=== PATIENT | male | born 1955 | race Caucasian/White ===

== ENCOUNTER 2021-11-05 08:30 | Day surgery (SDC) | payer MEDICARE, OTHER ==
[~2021-11-05] VITALS: Ht 175.3 cm; Wt 86.3 kg
[~2021-11-05 08:30] MED LIST: BAYER CHEWABLE81 MG PO; CLOPIDOGREL75 MG PO; CRESTOR40 MG NG; FAMOTIDINE40 MG PO; GEMFIBROZIL600 MG PO; MAGNESIUM250 M1 PO; NITROSTAT0.4 MG SL
--- NOTE | 2021-11-05 11:18 | NUR ---
11/05/21 Deisy8 Katia Wren 1114-PATIENT ARRIVED TO PACU DROWSY AWAKENS TO VERBAL STIMULI DENIES PAIN OR NAUSEA. 2L NC 95% RR EVEN. IVF INFUSING. HOB ELEVATED. IVF INFUSING. PATIENT DOZES BACK TO SLEEP.
--- NOTE | 2021-11-05 18:26 | OR ---
[facility] [address], [place] [address] Signed DATE OF OPERATION: 11/05/2021 SURGEON: Elian Bullard MD PREOPERATIVE DIAGNOSIS: Screening colonoscopy. POSTOPERATIVE DIAGNOSIS: Diverticulosis, sigmoid and left colon and elsewhere. PROCEDURE: Total colonoscopy to cecum. ANESTHESIA: Intravenous sedation; fentanyl 150 mcg and Versed 5 mg. INDICATION: This 66-year-old white man is a patient of Dr. Stone and well known to me from the past having undergone colonoscopy in 2011 (10 years ago), which was normal. He was noted to have some diverticula then, however. He has no family history of colon cancer and no symptoms of bleeding, diarrhea, or constipation. He is admitted at this time to undergo colonoscopy. He understands the risk of bleeding, infection, and perforation. FINDINGS: The prep was excellent. Complete colonoscopy was undertaken to the right colon, but elevation of mucosa with biopsy forceps was required to see behind the ileocecal valve. Numerous diverticula were noted throughout the colon, most dominantly in the left side and sigmoid. There was no other abnormality of note, specifically no polyps or colitis. DESCRIPTION OF PROCEDURE: The patient was brought to the endoscopy suite and placed in lateral decubitus position, given intravenous sedation to the point of slurred speech and nystagmus. Digital rectal examination was normal. An Olympus video colonoscope was passed in the rectum and manipulated throughout the colon ultimately passing the hepatic flexure with entry into the right colon. There were various maneuvers including abdominal wall stabilization. The scope was advanced further where visualization of the cecum could be undertaken, but full intubation not undertaken. Using biopsy forceps, the mucosa of the cecum was elevated and examined showing no sign of abnormality behind the ileocecal valve. The scope was then withdrawn Electronically Signed By: ELIAN BULLARD MD 11/05/21 1826 PATIENT NAME: ELIOT WASHINGTON OPERATIVE REPORT DATE OF : 53 REPORT #: [id number] PHYSICIAN: ELIAN BULLARD MD PCP: MARK STONE MD REPORT IS CONFIDENTIAL AND NOT TO BE RELEASED WITHOUT AUTHORIZATION [facility] [address], [place] [address] Signed and examination throughout showed no sign of polyps or colitis, only diverticular changes throughout, most dominantly in the left and sigmoid areas. Retroflexed view of the rectum was essentially normal. The scope was removed. The patient was taken to the recovery room in good condition. CONCLUDING DIAGNOSIS: Diverticulosis. PLAN: Recommend high-fiber diet and recommend repeat colonoscopy in 10 years, sooner if clinically indicated. He will return to the ongoing care of Dr. Stone. MD GAVIN Torres/BENJAMINL /[id number] cc: Dr. Mark Stone Copies: ~ Electronically Signed By: ELIAN BULLARD MD 11/05/21 1826 PATIENT NAME: ELIOT WASHINGTON OPERATIVE REPORT DATE OF : 53 REPORT #: [id number] PHYSICIAN: ELIAN BULLARD MD PCP: MARK STONE MD REPORT IS CONFIDENTIAL AND NOT TO BE RELEASED WITHOUT AUTHORIZATION
== END 2021-11-05 12:08 | disposition home or self-care (01) ==
LOC: DS 08:30 → OPS 08:30 → DS 08:35 → OPS 10:30
PROVIDERS: ATTEND Surgery
PROC: 0DJD8ZZ Inspection of Lower Intestinal Tract, Via Natural or Artificial Opening Endoscopic (ICD-10-PCS; principal; 2021-11-05 10:30)
DX: Z12.11 Encounter for screening for malignant neoplasm of colon (principal); Z95.5 Presence of coronary angioplasty implant and graft; K21.9 Gastro-esophageal reflux disease without esophagitis; K57.30 Diverticulosis of large intestine without perforation or abscess without bleeding; Z79.82 Long term (current) use of aspirin; Z79.01 Long term (current) use of anticoagulants; Z86.16 Personal history of COVID-19
CPT/HCPCS: 99153; G0500; J2250; J3010; J7121

== ENCOUNTER 2023-01-28 14:15 | Emergency (ER) | payer MEDICARE, OTHER ==
[~2023-01-28] VITALS: Ht 175.3 cm; Wt 86.2 kg
[2023-01-28 17:47] VITALS: BP 144/84
== END 2023-01-28 17:53 | disposition home or self-care (01) ==
LOC: ED 14:15
DX: S61.012A Laceration without foreign body of left thumb without damage to nail, initial encounter (principal); W22.8XXA Striking against or struck by other objects, initial encounter; Z87.891 Personal history of nicotine dependence; Z91.09 Other allergy status, other than to drugs and biological substances; Z79.899 Other long term (current) drug therapy; Z79.82 Long term (current) use of aspirin
CPT/HCPCS: 12002; 99282-25

== ENCOUNTER 2024-02-11 15:15 | Inpatient (IN) | payer MEDICARE, OTHER ==
[~2024-02-11] VITALS: Ht 175.3 cm; Wt 74.9 kg
[~2024-02-11 15:15] MED LIST changes: -CRESTOR40 MG NG; +CRESTOR40 MG PO
[2024-02-11 15:36] LABS: BASOPHILS 0.3 % (0-2); EOSINOPHILS 1.9 % (0-6); HEMATOCRIT 43.8 % (35.0-50.0); HEMOGLOBIN 15.1 g/dL (12.0-18.0); LYMPHOCYTES 23.5 % (24-44); MCH 31.7 (27-36); MCHC 34.5 g/dl (30-36); MCV 91.9 fl (81-99); MONOCYTES 11.3 % (0-12); PLATELET COUNT 249 K/uL (140-440); RBC 4.76 M/ul (4.3-5.7); RDW 12.7 (10.5-15.0)
[2024-02-11 15:41] LABS: INR 1.08 (0.80-1.30); PROTIME 13.6 Sec (11.2-14.2)
[2024-02-11 15:43] LABS: PARTIAL THROMBOPLASTIN TIME 32.8 Sec (22.9-41.3)
[2024-02-11] MEDS ORDERED: methylPREDNISolone SOD SUCC 125 MG/2 ML VIAL IV ONE (15:45)
[2024-02-11] MEDS ORDERED: ALBUTEROL/IPRATROPIUM 3 ML NEB INH ONE (15:45)
[2024-02-11 15:53] LABS: ALBUMIN 3.5 g/dL (3.4-5.0); ALBUMIN/GLOBULIN RATIO 0.66 (1.1-2.4); BILIRUBIN, TOTAL 0.6 ng/dL (0.2-1.0); BUN/CREATININE RATIO 13.08 (6.0-28.6); CALCIUM 9.6 mg/dL (8.5-10.1); CREATININE, SERUM 1.07 mg/dL (0.70-1.30); MAGNESIUM 2.1 mg/dL (1.8-2.4); PROTEIN, TOTAL 8.8 g/dL (6.4-8.2)
[2024-02-11] MEDS ORDERED: TRELEGY ELLIPT1 EAC1 INH (15:53)
[2024-02-11 16:43] LABS: INFLUENZA B NAA NEGATIVE (NEGATIVE); RESPIRATORY SYNCYTIAL VIR NAA NEGATIVE (NEGATIVE)
[2024-02-11] MEDS ORDERED: REMDESIVIR 200 MG in SODIUM CHLORIDE 0.9% 210 ML IV ONE (19:15)
[2024-02-11] MEDS ORDERED: DEXAMETHASONE SOD PHOS 10 MG/ML VIAL IV SCH ×2 (19:15→20:00)
[2024-02-11] MEDS ORDERED: OSELTAMIVIR PHOSPHATE 75 MG CAP PO SCH (19:15)
--- NOTE | 2024-02-11 19:45 | NUR ---
PT ARRIVED TO CCU ROOM 130. PT ON 3L OXY MASK, NO SIGNS OF DISTRESS. PT TRANSFERS FROM STRETCHER TO BED VIA 1X ASSIST. PT STEADY ON FEET, DENIES FEELING ANY WEAKNESS, LIGHTHEADED, OR SOB. HAND OFF REPORT RECEIVED FROM JOAQUIN AVILEZ.
--- NOTE | 2024-02-11 20:00 | NUR ---
PT MOVED TO 3L NC, TOLERATING WELL. PT VITAL SIGNS STABLE.
[2024-02-11 20:07] VITALS: BP 133/74
[2024-02-11 20:30] VITALS: BP 99/72
[2024-02-11 21:00] VITALS: BP 126/72
[2024-02-11] MEDS ORDERED: MELATONIN 3 MG TAB PO PRN (21:00)
--- NOTE | 2024-02-11 21:15 | NUR ---
PT REQUESTING TO USE BATHROOM. PT UP TO BATHROOM, X1 SBA. PT DESATS LOW 84% WITH MOVEMENT AND REPORTS FEELING SOB. PT ASSISTED BACK TO BED, O2 INCREASED TO 5L NC. PT RECOVERS QUICKLY, O2 TURNED BACK TO 3L. PT TOLERATING WELL WITH SATURATION AT 98%. NO FURTHER NEEDS AT THIS TIME. CALL LIGHT WITHIN REACH.
[2024-02-11 21:30] VITALS: BP 145/86
[2024-02-11 22:00] VITALS: BP 116/72
[2024-02-11 23:00] VITALS: BP 125/68
--- NOTE | 2024-02-11 23:30 | NUR ---
NEW 20G IV PLACED IN RIGHT FOREARM. PT TOLERATED WELL. NO FURTHER NEEDS AT THIS TIME. CALL LIGHT WITHIN REACH.
[2024-02-12] VITALS (15 sets, daily range): BP systolic 105–137; BP diastolic 58–75
--- NOTE | 2024-02-12 01:02 | NUR ---
PT RESTING IN BED WITH EYES CLOSED, RESPIRATIONS EVEN AND UNLABORED. PT REMAINS ON 3L NC, SATURATING WELL. PT VITAL SIGNS STABLE. NO NEEDS AT THIS TIME. CALL LIGHT WITHIN REACH. BED IN LOW AND LOCKED POSITION WITH BED ALARM ON.
--- NOTE | 2024-02-12 03:12 | NUR ---
PT USED CALL LIGHT TO USE THE RESTROOM. PT USED URINAL AT BEDSIDE. STEADY ON FEET, O2 SATURATION DROPPED LOW 86%. PT RECOVERED QUICKLY, AND REMAINED ON 3L NC. PT BACK TO BED, FRESH ICE WATER PROVIDED. CALL LIGHT WITHIN REACH, BED IN LOW AND LOCKED POSTION WITH BED ALARM ON. PT HAS NO FURTHER NEEDS AT THIS TIME.
--- NOTE | 2024-02-12 05:19 | NUR ---
PT LABS DRAWN OFF PERIPHERAL IV SITE AND GIVEN DIRECTLY TO LAB IN ROOM. PT HAS NO NEEDS AT THIS TIME. CALL LIGHT WITHIN REACH.
[2024-02-12 05:32] LABS: BASOPHILS 0.1 % (0-2); HEMATOCRIT 40.2 % (35.0-50.0); HEMOGLOBIN 14.3 g/dL (12.0-18.0); LYMPHOCYTES 19.7 % (24-44); MCHC 35.5 g/dl (30-36); MONOCYTES 4.9 % (0-12); NEUTROPHILS 75.3 % (39-80); PLATELET COUNT 239 K/uL (140-440); RBC 4.46 M/ul (4.3-5.7); RDW 12.9 (10.5-15.0)
[2024-02-12 05:52] LABS: ALBUMIN 3.1 g/dL (3.4-5.0); ALBUMIN/GLOBULIN RATIO 0.62 (1.1-2.4); ANION GAP 11.3 (7-21); BILIRUBIN, TOTAL 0.3 ng/dL (0.2-1.0); BUN/CREATININE RATIO 15.47 (6.0-28.6); CALCIUM 9.1 mg/dL (8.5-10.1); CREATININE, SERUM 0.84 mg/dL (0.70-1.30); MAGNESIUM 2.3 mg/dL (1.8-2.4); POTASSIUM 4.3 mmol/L (3.5-5.1); PROTEIN, TOTAL 8.1 g/dL (6.4-8.2)
--- NOTE | 2024-02-12 06:55 | NUR ---
PT NOW ON 1L NC. TOLERATING WELL, SATURATION AT 95%. VITAL SIGNS STABLE. NO NEEDS AT THIS TIME. CALL LIGHT WITHIN REACH.
--- NOTE | 2024-02-12 07:30 | NUR ---
REPORT RECEIVED. PATIENT IS RESTING IN BED. NO DISTRESS NOTED.
[2024-02-12] MEDS ORDERED: ASPIRIN 81 MG CHEW PO SCH (09:00)
[2024-02-12] MEDS ORDERED: MAGNESIUM OXIDE 400 MG TABLET PO SCH (09:00)
[2024-02-12] MEDS ORDERED: CLOPIDOGREL BISULFATE 75 MG TAB PO SCH (09:00)
[2024-02-12] MEDS ORDERED: ENOXAPARIN SODIUM 40 MG/0.4 ML SYR SUB-Q SCH (09:00)
[2024-02-12] MEDS ORDERED: FAMOTIDINE 20 MG TAB PO SCH (09:00)
[2024-02-12] MEDS ORDERED: ALBUTEROL SULFATE 0.083% 3 ML VIAL INH PRN (09:30)
--- NOTE | 2024-02-12 09:44 | NUR ---
RESP THERAPIST IN PATIENT ROOM GIVING NEB TREATMENT. TOOK BREAKFAST FAIR.
[2024-02-12] MEDS ORDERED: BUDESONIDE-FO10.2 G1 INH (10:27)
[2024-02-12] MEDS ORDERED: VENTOLIN HFA18 GM INH (10:28)
[2024-02-12] MEDS ORDERED: REMDESIVIR 100 MG in SODIUM CHLORIDE 0.9% 230 ML IV SCH (10:30)
--- NOTE | 2024-02-12 10:30 | NUR ---
UP TO COMMODE TO VOID AND EXPELL MEDIUM BROWN LOOSE STOOL. WITH TRANSFER TO COMMODE O2 INCREASED INCREASED TO 4 L AND WITH EXERTION O2 SAT TO 82. WITH REST, O2 SAT QUICKLY RECOVERS TO 90. UPON RETURN TO BED O2 DECREASED TO 2 LITERS. PATIENT STATES HE DOES GET SHORT OF BREATH WITH ACTIVITY. PATIENT STATES HE DOES FEEL ALOT BETTER TODAY.
--- NOTE | 2024-02-12 11:36 | NUR ---
MED REC COMPLETE
[2024-02-12] MEDS ORDERED: PHARMACY RENAL DOSE ADJUSTMENT 1 DOSE MISC PO SCH (12:00)
[2024-02-12] MEDS ORDERED: ALBUTEROL/IPRATROPIUM 3 ML NEB INH SCH (12:00)
--- NOTE | 2024-02-12 13:00 | NUR ---
TOOK LUNCH WELL. PATIENT IS W/O REQUEST. SITTING UP IN BED VISITING WITH . REMAINS ON O2 AT 2 LITERS.
--- NOTE | 2024-02-12 14:00 | NUR ---
OOB TO VOID AND CHANGE UNDERSHORTS, O2 SATS DOWN TO 82, O2 INCREASED TO 4 L NC, O2 SAT THEN TO 88. AFTER REST, SATS UP TO 90'S. O2 THEN DECREASED TO 2.5 L NC.
--- NOTE | 2024-02-12 16:48 | NUR ---
ASSESSMENT DONE. LUNGS ARE WITH CRACKLES THROUGOUT. CONTINUES WITH INCREASED SHORTNESS OF BREATH WITH EXERTION, WITH DESATS TO MID 80'S. WILL RECOVER QUICKLY AFTER FEW MINUTES OF REST. HAS OCC HARSH PRODUCTIVE COUGH. SITTING UP IN BED FOR DINNER. CALL LIGHT WITHIN REACH. DAUGHTER IN ROOM.
--- NOTE | 2024-02-12 18:40 | NUR ---
DR. ESCALONA HERE TO SEE PATIENT. NO FUTHER ORDERS AT THIS TIME.
--- NOTE | 2024-02-12 19:08 | NUR ---
REPORT TO NEXT SHIFT. PATIENT IS WATCHING TV WITH HOB ELEVATED. REMAINS ON O2 AT 2 L NC. NO FUTHER CHANGES.
--- NOTE | 2024-02-12 19:25 | NUR ---
HANDOFF REPORT RECEIVED FROM MELISSA NUÑEZ. PT LAYING IN BED WATCHING TV, NO NEEDS AT THIS TIME. CALL LIGHT WITHIN REACH.
--- NOTE | 2024-02-12 19:45 | NUR ---
PT USED CALL LIGHT REQUESTING TO USE THE BATHROOM. PT USED URINAL AT BEDSIDE. PT DESATS LOW 84% ON 2L NC. PT O2 TITRATED UP TO 4L NC. PT VOIDED 550 CC OF CLEAR YELLOW URINE. CALL LIGHT WITHIN REACH.
[2024-02-12] MEDS ORDERED: BUDESONIDE 0.5 MG/2 ML VIAL INH SCH (20:00)
--- NOTE | 2024-02-12 20:10 | NUR ---
PT ASSESSMENT COMPLETE. PT RESTING IN BED WATHCING TV WITH AT BEDSIDE. PT IS ON 2L NC, SATURATING WELL. VITAL SIGNS STABLE. PT DENIES ANY PAIN, SOB, OR FEELING NAUSEOUS AT THIS TIME. PT IV SITES WNL. LUNG SOUNDS HAVE CRACKLES THROUGHOUT. PT PROIVDED WITH FRESH ICE WATER AND NEW GOWN. PT HAS NO FURTHER NEEDS AT THIS TIME. CALL LIGHT iRewardChartIN REACH. BED IN LOW AND LOCKED POSTION.
--- NOTE | 2024-02-12 21:03 | EKG ---
[facility] [address] [facility] [place] [address] Signed Sinus bradycardia Minimal voltage criteria for LVH, may be normal variant ( R in aVL ) Borderline ECG When compared with ECG of 30-DEC-2018 17:58, T wave inversion now evident in Inferior leads Nonspecific T wave abnormality no longer evident in Lateral leads Confirmed by Denisha Olmstead MD ([id number]) on 02/12/2024 9:03:21 PM Electronically Signed By: DENISHA OLMSTEAD MD 02/12/[id number] PATIENT NAME: ELIOT WASHINGTON Electrocardiogram DATE OF : 53 PHYSICIAN: DENISHA OLMSTEAD MD REPORT #: [id number] REPORT IS CONFIDENTIAL AND NOT TO BE RELEASED WITHOUT AUTHORIZATION
--- NOTE | 2024-02-12 22:21 | NUR ---
PT RESTING IN BED WATHCING TV. PT VITAL SIGNS STABLE. PT STATES HE HAS NO NEEDS AT THIS TIME. CALL LIGHT WITHIN REACH.
[2024-02-13] VITALS (8 sets, daily range): BP systolic 95–135; BP diastolic 53–72
--- NOTE | 2024-02-13 00:35 | NUR ---
PT USED CALL LIGHT REQUESTING TO USE BATHROOM. PT STOOD AT SIDE OF BED AND USED URINAL. PT DESATS LOW 82% ON 2L NC. O2 TITRATED TO 4L NC. PT BACK TO BED, NO FURTHER NEEDS AT THIS TIME. VITAL SIGNS STABLE. PT BACK TO 2L NC, WITH SATURATION AT 97%.
--- NOTE | 2024-02-13 02:10 | NUR ---
pt resting in bed with eyes closed, respirations even and unlabored. vital signs stable. no needs at this time. call light within reach.
--- NOTE | 2024-02-13 04:30 | NUR ---
PT RESTING IN BED WITH EYES CLOSED, RESPIRATIONS EVEN AND UNLABORED. PT VITAL SIGNS STABLE. NO NEEDS AT THIS TIME. CALL LIGHT WITHIN REACH. BED IN LOW AND LOCKED POSITION WITH BED ALARM ON.
[2024-02-13 05:23] LABS: BASOPHILS 0.2 % (0-2); HEMATOCRIT 40.9 % (35.0-50.0); HEMOGLOBIN 13.9 g/dL (12.0-18.0); LYMPHOCYTES 13.6 % (24-44); MCH 31.4 (27-36); MCHC 34.1 g/dl (30-36); MCV 92.1 fl (81-99); MONOCYTES 5.5 % (0-12); NEUTROPHILS 80.7 % (39-80); PLATELET COUNT 243 K/uL (140-440); RBC 4.44 M/ul (4.3-5.7); RDW 12.7 (10.5-15.0)
[2024-02-13 05:36] LABS: ALBUMIN 2.9 g/dL (3.4-5.0); ALBUMIN/GLOBULIN RATIO 0.62 (1.1-2.4); ANION GAP 10.4 (7-21); BILIRUBIN, TOTAL 0.3 ng/dL (0.2-1.0); BUN/CREATININE RATIO 21.83 (6.0-28.6); CALCIUM 9.3 mg/dL (8.5-10.1); CREATININE, SERUM 0.87 mg/dL (0.70-1.30); MAGNESIUM 2.2 mg/dL (1.8-2.4); POTASSIUM 4.4 mmol/L (3.5-5.1); PROTEIN, TOTAL 7.6 g/dL (6.4-8.2)
--- NOTE | 2024-02-13 06:35 | NUR ---
PT CALLS TO US E URINAL, O2 INCREASED TO 4L DURING ACTIVITY. PT UP TO BEDSIDE TO USE URINAL. PT SPO2 DROPS TO 88% DURING ACTIVITY. PT BACK IN BED. WILL MAINTAIN 4L NC UNTIL SPO2 STABALIZES . ICE WATER PROVIDED. NO OTHER NEEDS STATED. CALL LIGHT IN REACH.
--- NOTE | 2024-02-13 07:01 | NUR ---
XRAY IN ROOM. PT PROVIDED WITH FRESH ICE WATER. NO FURTHER NEEDS AT THIS TIME. CALL LIGHT WITHIN REACH.
--- NOTE | 2024-02-13 07:30 | NUR ---
REPORT RECEIVED. PATIENT RESTING IN BED. NO DISTRESS NOTED.
--- NOTE | 2024-02-13 08:30 | NUR ---
ASSESSMENT DONE. DENIES PAIN. PATIENT STATES HE IS FEELING BETTER TODAY. SITTING UP IN BED FOR BREAKFAST. TAKED WITH PATIENT ABOUT POC FOR THE DAY, INDICATES UNDERSTANDING. STATES HE DOES GET INCREASE SHORTNESS OF BREATH WITH EXERTION. O2 AT 1 LITER NC.
--- NOTE | 2024-02-13 10:45 | NUR ---
AM CARES GIVEN. TOLERATED WELL.
--- NOTE | 2024-02-13 10:50 | NUR ---
Patient is currently setting at bedside, his 02 sats with speaking is 91% on 1L 02 per Nasal Cannula. RN is in the room at this time also. Patient is oriented to person, place and time. He denies home care needs at this time, he feels confident that his and children will be able to assist him with home care needs upon discharge, and during his recovery. He feels he has been cared for "very well" while here in the hospital, and expresses no concern to this RN at this time.
--- NOTE | 2024-02-13 11:07 | NUR ---
UR CLINICAL REVIEW: 2 MN FOR VERSALUS-MEETS INPT CRITERIA MEDICARE INPT 02/11/24 @ 1901 ORDER MATCHES REG NO AUTH REQUIRED PER MEDICARE GUIDELINES DISCHARGE TO HOME WHEN STABLE
--- NOTE | 2024-02-13 11:13 | NUR ---
PHYSICAL THERAPY HERE TO WORK WITH PATIENT. PATIENT REMAINS IN CHAIR. O2 AT 1 LITER. WHEN PATIENT AMBULATED IN ROOM WITH PHYSICAL THERAPY, O2 INCREASED TO 3 LITERS.
--- NOTE | 2024-02-13 12:00 | NUR ---
ASSESSMENT UNCHANGED. SITTING UP IN CHAIR, READY TO TAKE LUNCH. REMAINS ON ONE LITER O2 NC. REMAINS IN ISOLATION DUE TO FLU AND COVID POSITIVE. HAS OCC COUGH, NON-PRODUCTIVE.
--- NOTE | 2024-02-13 13:30 | NUR ---
TOOK LUNCH WELL, BACK TO BED. O2 INCREASED TO 3 LITER WITH EXERTION. SAT TO 80 BREIFLY WITH MOVEMENT. PATIENT IS SHORT OF BREATH WITH EXERTION.
--- NOTE | 2024-02-13 14:30 | NUR ---
PT NOT AVAILABLE FOR VISIT. PROVIDED PRAYER.
--- NOTE | 2024-02-13 17:40 | NUR ---
UP TO COMMODE TO VOID AND EXPELL LARGE SEMI SOFT BROWN STOOL. O2 TO 4 LITERS WITH MOVEMENT CONTINUES TO DE SAT WITH EXERTION, SATS TO 88 ON 4 LITERS WITH INCREASE WOB. BACK TO BED, SITTING UP IN BED FOR DINNER. PATIENT WAIFE IS IN ROOM.
--- NOTE | 2024-02-13 19:15 | NUR ---
RECEIVED REPORT FROM DAY SHIFT RN. PATIENT IS RESTING IN BED WATCHING TV. RT IN ROOM.
--- NOTE | 2024-02-13 20:24 | NUR ---
PATIENTS ASSESMENT COMPLETED. PATIENTS VITALS TAKEN AND RECORDED. PATIENT DENIES ANY PAIN OR SOB. PATIENT IS ABLE TO TALK IN FULL SENTENCES. PATIENTS IVS X2 FLUSHED AND SL PER ORDER. PATIENT DENIES THE NEED TO USE THE BR. PATIENT DENIES ANY NEEDS AT THIS TIME.
--- NOTE | 2024-02-13 21:10 | NUR ---
PATIENT ASSISTED TO STAND AT THE BEDSIDE AND USE URINAL. PATIENT STEADY ON HIS FEET. PATIENT ABLE TO VOID. PATIENTS OXYGEN DECREASED WITH ACTIVITY. PATIENTS OXYGEN INCREASED TO 4L VIA NC. PATIENT IS NOW RESTING IN BED. PATIENTS PM MEDS GIVEN PER ORDER. PATIENT REPORTS IMPROVEMENT OF SOB AFTER RETURNING TO BED. PATIENTS OXYGEN TITRATED BACK DOWN TO 2L VIA NC. PATIENT DENIES ANY FURTHER NEEDS. CALL LIGHT IN REACH.
--- NOTE | 2024-02-13 22:30 | NUR ---
PATIENT ASSISTED WITH TURNING LIGHTS OFF IN ROOM. PATIENT DENIES ANY SOB. PATIENT REMAINS ON 2L VIA NC. PATIENT DENIES ANY FURTHER NEEDS. CALL LIGHT IN REACH.
[2024-02-14] VITALS (8 sets, daily range): BP systolic 113–129; BP diastolic 58–77
[2024-02-14] MEDS ORDERED: MAGNESIUM HYDROXIDE/AL HYDROX 30 ML CUP PO PRN (01:00)
--- NOTE | 2024-02-14 01:38 | NUR ---
PATIENT TITRATED TO 4L VIA NC. PATIENT STOOD AT BEDSIDE AND USED URINAL. PATIENT ABLE TO VOID. PATIENT IS BACK IN BED RESTING. PATIENT NOTED TO HAVE SOB W/ACTIVITY. PATIENT TITRATED BACK DOWN TO 2L VIA NC. PATIENT REPORTS "HEARTBURN", PRN MEDICATION GIVEN PER ORDER. PATIENT DENIES ANY CHEST PAIN. PATIENT STATED "I HAVE HEARTBURN AT HOME AND I JUST TAKE TUMS AND IT GOES AWAY." PATIENT PROVIDED FRESH ICE WATER. PATIENT DENIES ANY FURTHER NEEDS. CALL LIGHT IN REACH.
--- NOTE | 2024-02-14 02:45 | NUR ---
PATIENT IS RESTING IN BED WITH EYES CLSOED, RR 21. CALL LIGHT IN REACH.
--- NOTE | 2024-02-14 04:00 | NUR ---
PATIENT IS RESTING IN BED WITH EYES CLOSED, RR 20. CALL LIGHT IN REACH. PATIENT REMAINS ON 2L VIA NC.
--- NOTE | 2024-02-14 05:10 | NUR ---
PATIENT TITRATED TO 4L VIA NC. PATIENT STOOD AT BEDSIDE TO USE URINAL. PATIENT ABLE TO VOID. PATIENT IS BACK IN BED RESTING. ASSESMENT COMPLETED. PATIENTS VITALS RECORDED. INTAKE AND OUTPUT RECORDED. IVS FLUSHED AND SL PER ORDER X2. PATIENT TITRATED BACK DOWN TO 2L VIA NC. PATIENT DENIES ANY SOB. PATIENT PROVIDED COFFEE AND FRESH ICE WATER. PATIENT DENIES ANY FURTHER NEEDS. CALL LIGHT IN REACH. LAB IN ROOM.
[2024-02-14 05:23] LABS: BASOPHILS 0.3 % (0-2); HEMATOCRIT 42.5 % (35.0-50.0); HEMOGLOBIN 14.6 g/dL (12.0-18.0); LYMPHOCYTES 13.3 % (24-44); MCH 31.5 (27-36); MCHC 34.3 g/dl (30-36); MCV 91.8 fl (81-99); NEUTROPHILS 79.4 % (39-80); PLATELET COUNT 259 K/uL (140-440); RBC 4.63 M/ul (4.3-5.7); RDW 12.9 (10.5-15.0)
[2024-02-14 05:38] LABS: ALBUMIN/GLOBULIN RATIO 0.63 (1.1-2.4); ANION GAP 12.1 (7-21); BILIRUBIN, TOTAL 0.3 ng/dL (0.2-1.0); BUN/CREATININE RATIO 27.05 (6.0-28.6); CALCIUM 9.1 mg/dL (8.5-10.1); CREATININE, SERUM 0.85 mg/dL (0.70-1.30); MAGNESIUM 2.3 mg/dL (1.8-2.4); POTASSIUM 4.1 mmol/L (3.5-5.1); PROTEIN, TOTAL 7.8 g/dL (6.4-8.2)
[2024-02-14] MEDS ORDERED: SODIUM CHLORIDE 45 ML BTL NAS PRN (07:15)
--- NOTE | 2024-02-14 07:30 | NUR ---
REPORT RECEIVED. PATIENT IS RESTFUL IN BED. NO DISTRESS NOTED.
--- NOTE | 2024-02-14 08:20 | NUR ---
PATIENT IN BED AT THIS TIME. TANK PROCESSOR BROUGHT IN PATIENTS BREAKFAST AND EXTRA CUP OF ICE. CALL LIGHT WITHIN REACH, NO FURTHER NEEDS AT THIS TIME.
--- NOTE | 2024-02-14 09:30 | NUR ---
OT IS ROOM WORKING WITH PATIENT. O2 AT 4 L NC WHILE OT WORKING WITH PATIENT. SPONGE BATH GIVEN WHILE UP. TO CHAIR AFTER OT .
--- NOTE | 2024-02-14 10:32 | NUR ---
PATIENT IN CHAIR AT THIS TIME. REAL ESTATE EXECUTIVE ASSISTANT WENT IN TO CHECK ON PATIENT, PATIENT HAS NO FURTHER NEEDS AT THIS TIME.
--- NOTE | 2024-02-14 11:12 | NUR ---
TELEPHONE REPORT RECEIVED FROM JOAQUIN SIFUENTES.
--- NOTE | 2024-02-14 11:20 | NUR ---
PHYSICAL THERAPY WORKING WITH PATIENT. SEE PHYSICAL THERAPY NOTE. PATIENT WILL BE TRANSFERRED TO [facility] BEFORE LUNCH. REMAINS ON 2 L NC, IF DESATS WITH ACTIVITY O2 VIA NC INCREASED ACCORDINGLY.
--- NOTE | 2024-02-14 11:50 | NUR ---
TO MED-SURG VIA CHAIR. REPORT GIVEN TO Homar EMERY RN.
--- NOTE | 2024-02-14 11:57 | NUR ---
PT ARRIVES TO MED-SURG ROOM 117 VIA RECLINER. PT AWAKE AND ALERT. O2 IN PLACE VIA NC. PT SATS 96% ON 2L. VSS. LUNCH IN ROOM. PT ORIENTED TO ROOM AND CALL LIGHT. RIGHT UPPER LOBE DIM, LLL CLEAR. RLL AND LLL CRACKLES NOTED. HRR. SPOUSE AT BEDSIDE. RESP EVEN, WORK OF BREATHING UNLABORED. DENIES PAIN OR DISCOMFORT AT THIS TIME.
--- NOTE | 2024-02-14 14:14 | NUR ---
PT NOT AVAIALBLE FOR VISIT. PROVIDED PRAYER.
--- NOTE | 2024-02-14 15:11 | NUR ---
PT RESTS IN BED, AWAKE AND ALERT. REPORTS HE AMBULATED TO THE BATHROOM AND TOLERATED IT WELL. REPORTS HE PASSED A BM. CALL LIGHT IN REACH, NO REQUESTS AT THIS TIME.
--- NOTE | 2024-02-14 17:29 | NUR ---
PT SITS UP IN BED. RESP, EVEN AND UNLABORED. PT NOW ON 1L O2 VIA NC. DINNER DELIVERED TO BEDSIDE. COFFEE AND MILK PROVIDED PER PT REQUESTS. PT HAS NO FURTHER REQUESTS AT THIS TIME. CALL LIGHT IN REACH.
--- NOTE | 2024-02-14 19:29 | NUR ---
REPORT RECIEVED FROM DAY SHIFT RN. PATIENT RESTING IN BED WITH VISITORS IN ROOM. DENIES NEEDS AT THIS TIME. CALL LIGHT IN REACH.
--- NOTE | 2024-02-14 20:29 | NUR ---
VS AND I&Os OBTAINED AND RECORDED. SCHEDULED MEDICATIONS ADMINISTERED. BOTH IVs FLUSH WNL. ASSESSMENT COMPLETE. PATIENT DENIES PAIN. PATIENT 94% ON 1L NC. PATIENT EDUCATED TO ROOM AND CALL LIGHT. ICE WATER PROVIDED PER PATIENT REQUEST. PAIENT DENIES FURTHER NEEDS. CALL LIGHT IN REACH.
--- NOTE | 2024-02-14 21:26 | NUR ---
CALL LIGHT ANSWERED. URINAL EMPTIED. LIGHTS OFF IN ROOM. pt DENIES ADDITIONAL NEEDS.
--- NOTE | 2024-02-14 23:00 | NUR ---
PATIENT RESTING IN BED, AWAKE. STATES HE IS HAS NO NEEDS AND IS JUST TRYING TO GET COMFORTABLE. CALL LIGHT IN REACH.
--- NOTE | 2024-02-15 00:20 | NUR ---
CALL LIGHT ANSWERED. PATIENT REQUESTING PRN HEARTBURN MEDICATION. MEDICATION ADMINSITERED. PATIENT DENIES FURTHER NEEDS. CALL LIGHT IN REACH.
--- NOTE | 2024-02-15 02:23 | NUR ---
PATIENT RESTING IN BED ON BACK WITH EYES CLOSED. RESPIRATIONS EVEN AND UNLABORED. CALL LIGHT IN REACH.
--- NOTE | 2024-02-15 04:39 | NUR ---
PATIENT RESTING IN BED ON BACK WITH EYES CLOSED. RESPIRATIONS EVEN AND UNLABORED. CALL LIGHT IN REACH.
[2024-02-15 05:42] LABS: BASOPHILS 0.2 % (0-2); HEMATOCRIT 41.6 % (35.0-50.0); HEMOGLOBIN 14.3 g/dL (12.0-18.0); LYMPHOCYTES 13.8 % (24-44); MCH 31.3 (27-36); MCHC 34.4 g/dl (30-36); PLATELET COUNT 238 K/uL (140-440); RBC 4.57 M/ul (4.3-5.7); RDW 12.7 (10.5-15.0)
[2024-02-15 06:02] LABS: ALBUMIN 2.9 g/dL (3.4-5.0); ALBUMIN/GLOBULIN RATIO 0.63 (1.1-2.4); ANION GAP 10.1 (7-21); BILIRUBIN, TOTAL 0.4 ng/dL (0.2-1.0); BUN/CREATININE RATIO 24.69 (6.0-28.6); CREATININE, SERUM 0.81 mg/dL (0.70-1.30); MAGNESIUM 2.5 mg/dL (1.8-2.4); POTASSIUM 4.1 mmol/L (3.5-5.1); PROTEIN, TOTAL 7.5 g/dL (6.4-8.2)
[2024-02-15 06:14] VITALS: BP 115/64
[2024-02-15 06:17] VITALS: BP 115/64
--- NOTE | 2024-02-15 06:22 | NUR ---
VS AND I&Os OBTAINED AND RECORDED. ASSESSMENT COMPLETE. PATIENT REPORTS SOB WITH MOVEMENT ONLY. FRESH ICE WATER PROVIDED. PATIENT DENIES FURTHER NEEDS. CALL LIGHT IN REACH.
--- NOTE | 2024-02-15 07:15 | NUR ---
REPORT RECEIVED FROM JOAQUIN MURRAY. PT AWAKE IN BED, REQUESTS FRESH ICE WATER. RETRIEVED FROM GORDO DANIEL. CALL LIGHT IN REACH, NO NEEDS NOTED AT THIS TIME.
[2024-02-15 09:54] VITALS: BP 120/61
[2024-02-15 09:56] VITALS: BP 120/61
--- NOTE | 2024-02-15 10:15 | NUR ---
Spoke with Dejuan. He plans on dc to home today. Updated I received his 02 qual and he will need 6l of 02 at rest. Pt states he had covid in the past and his lungs have not been the same. He has refused 02 in the past, but agree to use this time. [facility]. He states his is home and can be there for delivery. Let him know I will get orders and Rx and send to [facility]. I called [facility] and their van is in town with an 02 set up.
--- NOTE | 2024-02-15 10:40 | NUR ---
Faxed face sheet, orders, rx, H&P, and progress note to [facility] for 02. Called Tammie, pt . Updated I have sent info and gave them her number to call when they are ready to deliver 02. She states understanding.
--- NOTE | 2024-02-15 11:15 | NUR ---
PT WANTED TO SHOWER. I SET UP THE SHOWER FOR PT. PT WAS INDEPENDENT IN THE SHOWER AND KNEW TO CALL IF HE NEEDED HELP OR ANYTHING. WHILE PT WAS SHOWERING I CHANGED LINENS AND EMPTIED THE TRASH CANS. PT ASKED TO TURN OX ON TO 4 AND I DID. WHEN PT GOT BACK TO BED HIS O2 WAS AT 85 AND WENT UP TO 96 I TURNED DOWN THE OX TO 2 PT STOOD AT 96. PT DIDNT NEED ANYTHING ELSE AND CALL LIGHT IS WITHIN REACH.
--- NOTE | 2024-02-15 11:56 | NUR ---
IN DR. DAVID IS UPDATING PT. DR DAVID ANSWERS ALL QUESTIONS AND ADDRESSES PTs CONCERNS. PT REQUESTING ICE WATER, SUPPLIED. CALL LIGHT IN REACH, NO OTHER NEEDS NOTED.
[2024-02-15] MEDS ORDERED: OSELTAMIVIR PHO75 MG PO (12:09)
[2024-02-15] MEDS ORDERED: PREDNISONE20 MG PO (12:11)
[2024-02-15 13:03] VITALS: BP 133/72
[2024-02-15 13:07] VITALS: BP 133/72
--- NOTE | 2024-02-15 13:08 | NUR ---
IN TO START DISCHARGE PROCESS WITH PT. PT GIVEN AND DISCUSSED EDUCATION, ALL QUESTIONS ANSWERED. CURRENTLY WAITING PHONE CALL FROM TO WHEN SHE IS GOING TO BE HERE TO PICK HIM UP. CALL LIGHT IN REACH, NO NEEDS NOTED.
--- NOTE | 2024-02-15 14:13 | NUR ---
Called and spoke with Aarti to check if 02 has been delivered. Notified by Rn pt does not want to go home on a tank until 02 is in the home. [facility], [employer]. They are either there or on their way to deliver the 02 now.
--- NOTE | 2024-02-15 16:05 | NUR ---
PT EDUCATED ON DISCHARGE, ALL QUESTIONS ANSWERES, IVs AND FINAL VS REMOVED BY GORDO DANIEL. PT ESCORTED TO CARE 155.
== END 2024-02-15 15:51 | disposition home or self-care (01) | DRG 177 ==
LOC: ED 15:15 → CCU 19:01 → MS 02-14 11:48
PROVIDERS: Emergency Medicine; ADMIT Student in an Organized Health Care Education/Training Program; ATTEND Student in an Organized Health Care Education/Training Program
PROC: 3E0333Z Introduction of Anti-inflammatory into Peripheral Vein, Percutaneous Approach (ICD-10-PCS; principal; 2024-02-11)
PROC: XW033E5 Introduction of Remdesivir Anti-infective into Peripheral Vein, Percutaneous Approach, New Technology Group 5 (ICD-10-PCS; 2024-02-11)
DX: U07.1 COVID-19 (principal); J96.01 Acute respiratory failure with hypoxia; J84.9 Interstitial pulmonary disease, unspecified; J10.1 Influenza due to other identified influenza virus with other respiratory manifestations; I25.10 Atherosclerotic heart disease of native coronary artery without angina pectoris; J44.9 Chronic obstructive pulmonary disease, unspecified; E78.00 Pure hypercholesterolemia, unspecified; Z95.5 Presence of coronary angioplasty implant and graft; Z87.891 Personal history of nicotine dependence; Z98.890 Other specified postprocedural states; Z79.899 Other long term (current) drug therapy; Z79.82 Long term (current) use of aspirin; Z79.51 Long term (current) use of inhaled steroids
CPT/HCPCS: 36415; 71045; 71260; 80053; 83615; 83735; 83880; 84484; 85025; 85610; 85730; 86140; 87502; 93005; 93010; 94640; 94667; 94668; 94760; 94761; 94762; 96375; 97162; 97166; 97530; 97535; 99285-25; A9270; J0248; J1100; J1650; J2919; J7050; Q9967; U0002

== ENCOUNTER 2024-12-11 15:35 | Inpatient (IN) | payer MEDICARE, OTHER ==
[~2024-12-11] VITALS: Ht 175.3 cm; Wt 62.9 kg
[~2024-12-11 15:35] MED LIST changes: +BUDESONIDE-FO10.2 G1 INH; +OSELTAMIVIR PHO75 MG PO; +PREDNISONE20 MG PO; +TRELEGY ELLIPT1 EAC1 INH; +VENTOLIN HFA18 GM INH
[2024-12-11 15:56] LABS: BASOPHILS 0.3 % (0.2-1.2); EOSINOPHILS 0.9 % (0.8-7.0); LYMPHOCYTES 13.5 % (21.8-53.1); MCH 31.3 PG (25.7-32.2); MCHC 34.6 g/dL (32.3-36.5); MCV 90.7 fL (79.0-92.2); MONOCYTES 5.5 % (5.3-12.2); NEUTROPHILS 79.3 % (34.0-67.9); RBC 5.04 M/uL (4.63-6.08)
[2024-12-11] MEDS ORDERED: ALBUTEROL/IPRATROPIUM 3 ML NEB INH PRN (16:00)
[2024-12-11 16:34] LABS: ALT (SGPT) 23.0 U/L (14-59); AST (SGOT) 23.0 U/L (15-37); GLOMERULAR FILTRATION RATE,EST 88.0 mL/min (>60); PROTEIN, TOTAL 9.0 g/dL (6.4-8.2); UREA NITROGEN 20.0 mg/dL (7-18)
[2024-12-11 17:10] LABS: LACTIC ACID, BLOOD 1.3 mmol/L (0.4-2.0)
[2024-12-11] MEDS ORDERED: ACETAMINOPHEN 500 MG TAB PO ONE (19:15)
[2024-12-11] MEDS ORDERED: ACETAMINOPHEN 325 MG TAB PO PRN (19:30)
[2024-12-11] MEDS ORDERED: SODIUM CHLORIDE 0.9% 1,000 ML IV SCH (19:30)
[2024-12-11 20:41] LABS: INFLUENZA B NAA NEGATIVE (NEGATIVE); RESPIRATORY SYNCYTIAL VIR NAA NEGATIVE (NEGATIVE)
[2024-12-11] MEDS ORDERED: BUDESONIDE 0.5 MG/2 ML VIAL INH SCH (21:45)
[2024-12-11 21:51] VITALS: BP 116/92
[2024-12-11] MEDS ORDERED: FAMOTIDINE 20 MG TAB PO SCH (22:21)
[2024-12-11 22:26] VITALS: BP 114/42
[2024-12-11] MEDS ORDERED: guaiFENesin 600 MG TABCR PO PRN (22:30)
--- NOTE | 2024-12-11 23:30 | NUR ---
PATIENT RESTING QUIELTY IN BED EYES CLOSED, V/S STABLE, RR 20/MIN, 98% OXYGEN SATURATION ON 9L HIGH FLOW N.C.
[2024-12-11 23:32] VITALS: BP 114/75
[2024-12-12] VITALS (15 sets, daily range): BP systolic 98–142; BP diastolic 62–82
--- NOTE | 2024-12-12 00:32 | NUR ---
PATIENT CALLED NURSES STATION , THIS RN INTO PATIENT ROOM, JUSTINE REPORTS NEEDING TO SIT UP TO SIDE OF BE TO VOID. OXYMASK PLACED OVER N.C. AT 8L OXYGEN FLOW FOR ACTIVITY. PATIENT REMAINED 95% OXYGEN SATURATION DURING ACTIVITY. BACK TO BED NOW ON 9L N.C. HIGH FLOW 99% OXYGEN SATURATION.
[2024-12-12 05:14] LABS: BASOPHILS 0.1 % (0.2-1.2); EOSINOPHILS 0 % (0.8-7.0); LYMPHOCYTES 19.1 % (21.8-53.1); MCH 31.5 PG (25.7-32.2); MCHC 34.8 g/dL (32.3-36.5); MCV 90.5 fL (79.0-92.2); MONOCYTES 4.3 % (5.3-12.2); NEUTROPHILS 76.1 % (34.0-67.9); RBC 4.32 M/uL (4.63-6.08)
[2024-12-12 05:33] LABS: ALT (SGPT) 23.0 U/L (14-59); AST (SGOT) 17.0 U/L (15-37); GLOMERULAR FILTRATION RATE,EST 102.0 mL/min (>60); PHOSPHORUS, INORGANIC 4.2 mg/dL (2.5-4.9); PROTEIN, TOTAL 7.5 g/dL (6.4-8.2); UREA NITROGEN 11.0 mg/dL (7-18)
--- NOTE | 2024-12-12 07:35 | NUR ---
RECEIVED REPORT FROM NIGHT RN - MIGDALIA. PT UP TO COMMODE THIS MORNING, SMALL BM PRESENT, UNMEASURED URINE X1. PT SATS 91%, OXIMASK AT 11L WITH 9L NASAL CANNULA, WHEN UP TO COMMODE AND GETTING BACK TO BED, INCREASED WOB, INCREASED SOB, PATIENT WAS ABLE TO RECOVER FAIRLY QUICKLY, REMOVED OXIMASK ABOUT 10 MINUTES AFTER GETTING BACK TO BED, CURRENTLY ON 9L NC WITH SATS 98%. PT CALL LIGHT WITHIN REACH, FRESH ICE WATER/COFFEE PROVIDED. DENIES ANY OTHER NEEDS AT THIS TIME. RT ARRIVES TO PATIENT ROOM FOR BREATHING TREATMENT.
[2024-12-12] MEDS ORDERED: ALBUTEROL/IPRATROPIUM 3 ML NEB INH SCH (08:00)
[2024-12-12] MEDS ORDERED: ENOXAPARIN SODIUM 40 MG/0.4 ML SYR SUB-Q SCH (09:00)
--- NOTE | 2024-12-12 09:13 | NUR ---
PT SITTING UP IN BED, MD PRESENT IN ROOM DOING ROUNDS. PT AGREES WITH PLAN TO REPEAT CT THIS AFTERNOON, DENIES ANY CONCERNS. PT PROVIDED ORAL CARE STUFF AND FRESH WARM WASH RAG TO WASH FACE. TOLERATED 100% OF CLEAR LIQUID DIET, GOOD APPETITE. DENIES ANY OTHER NEEDS AT THIS TIME, CALL LIGHT WITHIN REACH.
--- NOTE | 2024-12-12 10:05 | NUR ---
PT NOT AVAILABLE FOR VISIT. PROVIDED PRAYER.
--- NOTE | 2024-12-12 10:20 | NUR ---
PT JUST COMPLETED WORKING WITH PT/OT, SITTING UP IN CHAIR AND NEEDING TO USE BSC. ASSISTED TO BSC, ENCOURAGED SLOW AND STEADY BREATHING, FOCUS ON BREATHING, PT RESPIRATIONS IN THE 30'S, PT WAS ABLE TO CALM BREATHING. ALLOWED PRIVACY, CALL LIGHT WITHIN REACH. ARRIVED TO UNIT WELL, AWAITING PATIENT TO COMPLETE IN PRIVACY AND PT ASSISTED BACK TO CHAIR. PT DID REQUIRE ADDITIONAL OXYGEN 12L PER OXIMASK AGAIN WITH EXERTION.
--- NOTE | 2024-12-12 10:41 | NUR ---
PT RECOVERED, CURRENTLY BACK IN CHAIR, SATS 97% ON 9L NC, OXIMASK HAS BEEN REMOVED; RESPIRATIONS STILL IN THE 30'S BUT PATIENT BREATHING HAS IMPROVED. PRESENT AT BEDSIDE. BM IN BSC. LINENE CHANGED TO BEDDING. CALL LIGHT WITHIN REACH, BELONGINGS ON BEDSIDE TRAY NEXT TO PATIENT. PT INSTRUCTED TO USE TRI-POD POSITIONING BUT DECLINES WHEN WOB INCREASES AND FEELS LIKE HE CANNOT CATCH HIS BREATH. PT STATES HE FEELS LIKE HE IS COMPRESSED EVEN MORE AND IT WORSENS HIS BREATHING, WAS NOT WILLING TO ATTEMPT DURING HIS EXERCISES WITH OT.
--- NOTE | 2024-12-12 11:03 | NUR ---
UR CLINICAL REVIEW: 2 MN FOR VERSALUS-PER IMAGERY ANALYST MEETS INPT FOR ACUTE ON CHRONIC RESP FAILURE WITH NEED FOR SUPPLEMENTAL OXYGEN MEDICARE INPT 12/11/24 @ 1933 ORDER MATCHES REG NO AUTH REQUIRED PER MEDICARE GUIDELINES MD ANTICIPATE DC TO HOME IN 1-[address] TODAY.
[2024-12-12] MEDS ORDERED: ASPIRIN 81 MG CHEW PO SCH (11:41)
[2024-12-12] MEDS ORDERED: CLOPIDOGREL BISULFATE 75 MG TAB PO SCH (11:41)
--- NOTE | 2024-12-12 11:53 | NUR ---
VERIFIED WITH MD, CONTINUE THE ASA/PLAVIX WITH LOVENOX. PT BROUGHT IN HOME MEDS - CRESTOR/GEMFIBROZIL, TO CONTINUE ORDERED PER HOME DOSE. WILL INPUT THOSE ORDERS AND HAVE PHARMACY LABEL FOR USE WHILE INPATIENT. ORDERS INPUT AND PHARMACY NOTIFIED.
[2024-12-12] MEDS ORDERED: PHARMACY RENAL DOSE ADJUSTMENT 1 DOSE MISC PO SCH (12:00)
[2024-12-12] MEDS ORDERED: ROSUVASTATIN 40MG TABLET PO SCH (12:07)
--- NOTE | 2024-12-12 12:32 | NUR ---
PT REMAINS UP IN CHAIR, PRESENT AT BEDSIDE BUT LEAVING TO RUN ERRANDS. PATIENTS VS STABLE, REMAINS ON 9L PER NC AND SATS 100% WHILE AT REST. MEDS GIVEN ORDERED - SEE MAR. LUNCH TRAY DELIVERED AND PATIENT TOLERATING WITHOUT ANY ISSUES. PT CALL LIGHT WITHIN REACH, DENIES ANY OTHER NEEDS AT THIS TIME.
[2024-12-12] MEDS ORDERED: PREDNISONE10 MG PO (13:49)
[2024-12-12] MEDS ORDERED: SERTRALINE HCL50 MG PO (13:54)
[2024-12-12] MEDS ORDERED: BUDESONIDE0.5 MG/2 M INH (13:55)
[2024-12-12] MEDS ORDERED: FAMOTIDINE20 MG PO (13:55)
[2024-12-12] MEDS ORDERED: PIRFENIDONE PO (13:57)
[2024-12-12] MEDS ORDERED: IPRAT-ALBUT 0.5-3 ML INH (13:58)
--- NOTE | 2024-12-12 14:21 | NUR ---
THIS RN TOOK PATIENT TO CT. PATIENT TOLERATED TRANSFERS WITH INCREASED O2 NEEDS OF 20L TOTAL. PT BACK IN ROOM, ASSISTED TO BED. CASE MGMT IN ROOM TALKING WITH PATIENT. ALL PT CARE NEEDS MET, CALL LIGHT/PHONE WITHIN REACH, DENIES ANY NEEDS. IV FLUIDS RESTARTED.
--- NOTE | 2024-12-12 14:25 | NUR ---
ALERT AND ORIENTED IN BED. SHORT OF BREATH AND DIFFICULTY PUTTING TOGETHER FULL SENTENCES. HOWEVER, PATIENT JUST RETURNED FROM IMAGING AND TRANSFERRED FROM WHEELCHAIR TO BED. STATES HE LIVES IN SINGLE LEVEL HOUSE WITH 1 STEP TO GET INSIDE, WITH HIS . STATES HE HAS OXYGEN CONCENTRATOR THAT GOES TO [employer] AND OXYGEN TANKS. HE WANTS A PORTABLE CONCENTRATOR BUT HIS OXYGEN NEEDS ARE TOO MUCH FOR MOST PORTABLE CONCENTRATORS. STATES DR. ROGERS AND [facility] ARE WORKING ON A CPT VEST FOR HOME, BUT HE HAS NOT RECEIVED IT YET AND DR. ROGERS IS AWARE. HE STATES HIS DRIVES HIM. DENIES ANY FINANCIAL CONCERNS. PLANS TO RETURN TO HOME WHEN MEDICALLY READY.
--- NOTE | 2024-12-12 15:20 | NUR ---
medications reconciled using pharmacy records and patient/ interview. patient will be taking his own rosuvastatin and gemfibrozil
--- NOTE | 2024-12-12 15:33 | NUR ---
IV ALARMING, RESTARTED, SITE IS PATENT. FAMILY IN ROOM VISITING WITH PATIENTS. VS STABLE. DENIES ANY NEEDS AT THIS TIME, CALL LIGHT WITHIN REACH.
--- NOTE | 2024-12-12 17:31 | NUR ---
PT FAMILY IN ROOM VISITING, STEPPED OUT PATIENT USING URINAL. PATIENT DESAT TO 80% ON 7L NC, THIS RN ARRIVES TO ROOM, PT BACK IN BED WITH OXIMASK IN PLACE AT 9L, TO HELP RECOVER FROM OVER EXERTING SELF. RECOVERED AFTER ABOUT 4 MINUTES, SATS NOW 97% ON 7L NC AT THIS TIME. CALL LIGHT WITHIN REACH, PATIENT WORKING ON CLEAR LIQUID TRAY, HAS GOOD APPETITE AND ABLE TO MAINTAIN SATS WHEN EATING/TALKING. NO OTHER NEEDS AT THIS TIME.
--- NOTE | 2024-12-12 18:42 | NUR ---
JUST LEFT FOR THE EVENING. PT BACK IN BED FROM GETTING UP TO BSC, RECOVERED QUITE WELL THIS EVENING, DID HAVE TO PROVIDE 9L PER OXIMASK ON TOP OF THE 7L NC. IV FLUIDS INFUSING ORDERED. PT DENIES ANY NEEDS, CALL LIGHT WITHIN REACH, PT RESTING IN BED WATCHING TV.
--- NOTE | 2024-12-12 19:12 | NUR ---
TOOK HOME MED - PIRFENIDONE. IN THE LOCK BOX NOW IS CRESTOR/GEMFIBROZIL.
--- NOTE | 2024-12-12 21:20 | NUR ---
ASSUMPTION OF CARE Upon initial assessment of pt, he is relaxing comfortably in bed, sitting upright. Pt reports that he feels better, denies SOB at rest. Exertion and activity continues to be a challenge for him due to his O2 demand. Pt is vitally stable at this time, afebrile, HR 74, RR 29, BP 121/65, SpO2 99% on 6L O2 which is his baseline at rest. Pt reports his needs are met at this time.
[2024-12-13] VITALS (14 sets, daily range): BP systolic 100–142; BP diastolic 57–76
[2024-12-13 05:35] LABS: BASOPHILS 0.1 % (0.2-1.2); EOSINOPHILS 0.2 % (0.8-7.0); LYMPHOCYTES 17.9 % (21.8-53.1); MCH 31.7 PG (25.7-32.2); MCHC 34.4 g/dL (32.3-36.5); MCV 92.0 fL (79.0-92.2); MONOCYTES 7.6 % (5.3-12.2); NEUTROPHILS 73.8 % (34.0-67.9); RBC 4.01 M/uL (4.63-6.08)
[2024-12-13 05:51] LABS: ALT (SGPT) 19.0 U/L (14-59); AST (SGOT) 16.0 U/L (15-37); GLOMERULAR FILTRATION RATE,EST 106.0 mL/min (>60); PROTEIN, TOTAL 7.0 g/dL (6.4-8.2); UREA NITROGEN 11.0 mg/dL (7-18)
--- NOTE | 2024-12-13 07:32 | NUR ---
DECREASED O2 TO 6 LPM PER HOME REGIMEN.
--- NOTE | 2024-12-13 08:05 | NUR ---
DISCHARGE REVIEW: REMAINS WITH OXYGEN NEED ABOVE BASELINE, IV STEROIDS ST EVAL WITH BARIUM SWALLOW STUDY TO BE DONE 12/13/24. PLANS TO DC TO HOME WHEN MEDICALLY READY. DC DATE 12/14-12/15/2024 ANTICIPATED
--- NOTE | 2024-12-13 09:36 | NUR ---
PATIENT ALERT AND ORIENTED. ASKING ABOUT CPT VEST PREVIOUSLY ORDERED BY DR. ROGERS. CALLED AND SPOKE WITH HENNA AT [facility]. STATES THEY HAVE BEEN AWAITING PATIENT CT RESULTS TO VERIFY QUALIFICATION FOR VEST. CURRENT CT RESULTS, H&P AND FACESHEET FAXED TO [facility].
--- NOTE | 2024-12-13 09:40 | NUR ---
PATIENT UPDATED ON VEST STATUS.
--- NOTE | 2024-12-13 10:19 | NUR ---
THIS RT WORKED WITH PT AND OT TODAY TO ASSESS NEEDSOF O2 WITH EXERTION. FIRST TRIP WAS ON 6 LPM AND PATIENT DESATURATED TO UPPER 70'S WITH 1 MINUTE 45 SECONDS RECOVERY TIME. SECOND TRIP WAS DOUBLE THE DISTANCE (SEE PT/OT NOTES) WE USED 6 LPM NC AND 6 LPM OXYMASK. PATIENT DESATURATED TO NO LOWER THAN 85% AND RECOVERY TIME WAS 1 MINUTE AND 5 SECONDS. PATIENT USES 6 LPM AT HOME AT REST AND ADDS 8 LPM VIA O2 MASK WITH EXERTION. NOT RETAINING CO2 AND THIS RT IS GOOD WITH PATIENT CURRENT HOME REGIMEN.
--- NOTE | 2024-12-13 11:05 | NUR ---
SPOKE WITH PATIENT AND SPOUSE ABOUT HOME HEALTH RECOMMENDATION BY THERAPIES. THEY ARE OPEN TO HOME HEALTH. PATIENT CHOICES PROVIDED, REQUEST [facility].
--- NOTE | 2024-12-13 12:03 | NUR ---
PT WORKING WITH RT CURRENTLY. SATS 96% ON 6L NASAL CANNULA. CRACKLES TO BILATERAL BASES, CLEAR UPPER LOBES. PT RESTING IN BED, CALL LIGHT WITHIN REACH. REINFORCED THE NEED TO AMBULATE TO THE BATHROOM FOR ELIMINATION TO GET HIM MOVING, PT VERBALIZES AND UNDERSTANDS, HESITANT STILL. IV FLUIDS RESTARTED, PT WAS DISCONNECTED WHILE WORKING WITH PT. ST JIMENES COMPLETED, ORDER INPUT FOR BARIUM SWALLOW, PLAN TO COMPLETE TODAY AT 1300, PT VERBALIZES UNDERSTANDING. ALL PT CARE NEEDS MET AT THIS TIME, IN ROOM AND UNDERSTANDS PLAN WELL.
--- NOTE | 2024-12-13 14:23 | NUR ---
PT UP TO BATHROOM FOR ELIMINATION NEEDS, PATIENT TURNED TO 12L OXIMASK AND AMBULATED TO BATHROOM, SATS REMAINED AT 100% THE ENTIRE TIME, ABOUT 3 MINUTES INTO BEING IN BATHROOM, PT EXPLAINS THE NOSE OF THE OXYGEN MADE PT PANIC, DESAT TO 79% ON 12L OXIMASK. APPLIED NASAL CANNULA UNDER OXIMASK AT 6L AND AFTER 2 MIN 36 SECS PATIENT WAS ABLE TO CONTROL BREATHING AND RELAX, RR WAS 44. PT SAT ON THE TOILET FOR A PERIOD OF TIME WHEN RECOVERED AND TOLERATED, ASSISTED BACK TO BED AND PATIENT MAINTAINED SATS NO LOWER THAN 85% WHEN GOING BACK TO THE BED. ALLEVYN TO COCCYX WAS CHANGED IT WAS COMING LOOSE, BUTTOCKS OTHER THAN THE SMALL AREA ON THE LEFT GLUTEAL FOLD IS INTACT. NO SIGN OF SKIN BREAKDOWN. PATIENT PRESENT IN THE ROOM DURING THIS AND EXPLAINS SHE WORRIES HE GETS ANXIOUS WELL AND IT REALLY DOES AFFECT HIS BREATHING. PATIENT RESTING IN BED, CALL LIGHT WITHIN REACH, BACK ON 6L NC AT THIS TIME. IS LEAVING FOR THE AFTERNOON AND WILL RETURN LATER THIS EVENING. NO OTHER CARE NEEDS AT THIS TIME.
--- NOTE | 2024-12-13 15:30 | NUR ---
THIS RN AND RT WORKED ON CHANGING OVER PATIENT NC TO A REGULAR NC, NO LONGER USING THE HIGH FLOW NC. PT CURRENTLY AT 6L NC, TALKING TO PHYSICIAN IN ROOM AND SATS REMAIN STABLE AT 99% 6LNC. ALL PT CARE NEEDS MET AT THIS TIME, CALL LIGHT WITHIN REACH.
--- NOTE | 2024-12-13 16:38 | NUR ---
PT UP TO BATHROOM WITH THIS RN, PATIENT REMAINED ON THE 6L NC AND WE DID 8L OXIMASK HYPEROXYGENATING HE DOES AT HOME, PT TOLERATED WELL, SATS REMAINED >90 ENTIRE TIME TO/FROM BATHROOM, DESAT WHEN ARRIVED BACK IN BED. PATIENT WAS IN BATHROM ABOUT 3 MINUTES, UPON GETTING ON EDGE OF BED DESAT TO 85% BUT RECOVERED WITHIN 50SECS. PT STATES HE FELT HE DID BETTER, SLIGHTLY ANXIOUS ABOUT THE PROCESS, PRN VISTARIL GIVEN - SEE MAR. CALL TO MD REGARDING ADVANCING DIET, ORDER INPUT TO REGULAR ADAT. WILL MONITOR PATINET. CALL LIGHT WITHIN REACH, PT BACK IN BED, FRIEND IN ROOM VISITING AT THIS TIME. URINE CLEAR YELLOW, VERY GOOD OUTPUT TODAY.
--- NOTE | 2024-12-13 16:44 | NUR ---
REPORT RECEIVED FROM DANTE MALLOY RN. PATIENT IS LYING IN BED WITH HOB ELEVATED. PATIENT WITH EYES OPEN AND RESPIRATIONS ARE EVEN AND UNLABORED. NASAL CANNULA IN PLACE. PATIENT WITH A VISITOR SITTING AT BEDSIDE. PATIENT STATED NO FURTHER NEEDS AT THIS TIME. CALL LIGHT AND PERSONAL BELONGINGS ARE WITHIN REACH.
--- NOTE | 2024-12-13 17:30 | NUR ---
PATIENT IS LYING IN BED WITH HOB ELEVATED. PATIENT IS ON 6L NC WITH EYES OPEN AND RESPIRATIONS ARE EVEN AND UNLABORED. PATIENT VISITOR LEFT THE ROOM AT THIS TIME. PATIENT FULL ASSESSMENT COMPLETE AND DOCUMENTED IN THE CHART. PATIENT IS ALERT AND ORIENTED TIMES FOUR. PATIENT LAST BM WAS 12/12/24. PATIENT IS ON THE HEART MONITOR AND IS IN NORMAL SINUS RHYTHM. CARDIAC WITH NORMAL S1 AND S2 ON AUSCULTATION. NO EDEMA NOTED. SENSATION INTACT WITH NO COMPLAINTS OF NUMBNESS OR TINGLING. RADIAL AND PEDAL PULSES ARE STRONG BILATERALLY. CAPILLARY REFILL IN THE UPPER AND LOWER EXTREMITIES IS LESS THAN 3 SECONDS BILATERALLY. PATIENT IS ON A REGULAR DIET. BOWEL TONES ARE ACTIVE IN ALL FOUR QUADRANTS. PATIENT WITH NO COMPLAINTS OF NAUSEA OR PAIN. IV SITE IS SALINE LOCKED. IV DRESSING IS CLEAN, DRY, AND INTACT. LUNG SOUNDS ARE CLEAR IN THE UPPER LOBES WITH CRACKLES IN THE BASES. ACCAPELLA NOTED AT BEDSIDE. PATIENT STATED NO FURTHER NEEDS AT THIS TIME. CALL LIGHT AND PERSONAL BELONGINGS ARE WITHIN REACH.
--- NOTE | 2024-12-13 18:35 | NUR ---
PATIENT TAKEN TO THE BATHROOM WITH GORDO SIMMONS AND THIS RN. PATIENT VOID LIGHT YELLOW URINE IN THE BATHROOM. PATIENT REMAIN ON 6L NC WITH 8L OXYMASK. PATIENT THEN AMBULATED BACK TO THE EDGE OF BED. PATIENT RECOVERED WITHIN A MINUTE. PATIENT IS NOW BACK IN BED WITH 6L NC ON. PATIENT SPO2 IS 93-100%. PATIENT WITH TWO VISITORS IN THE ROOM. PATIENT STATED NO FURTHER NEEDS AT THIS TIME. CALL LIGHT AND PERSONAL BELONGINGS ARE WITHIN REACH.
--- NOTE | 2024-12-13 18:51 | NUR ---
BROUGHT PATIENT A CUP OF COFFEE.
--- NOTE | 2024-12-13 20:11 | EKG ---
[facility] [address] [place] [address] Signed Sinus rhythm with premature atrial complexes Nonspecific ST abnormality Abnormal ECG When compared with ECG of 11-FEB-2024 15:31, premature atrial complexes are now present Vent. rate has increased BY 38 BPM Confirmed by Agustina David MD () on 12/13/2024 8:11:39 PM Electronically Signed By: AGUSTINA DAVID MD 12/13/242010 PATIENT NAME: ELIOT WASHINGTON Electrocardiogram DATE OF : 53 PHYSICIAN: AGUSTINA DAVID MD REPORT #: [id number] REPORT IS CONFIDENTIAL AND NOT TO BE RELEASED WITHOUT AUTHORIZATION
--- NOTE | 2024-12-13 20:15 | NUR ---
PATIENT SITTING UP IN BED, COMPLETED BREATHING TX BY Chris HELTON. PATIENT'S AT BEDSIDE RENÉ, PATIENT IS ALERT AND ORIENTED. HE REPORTS NEEDING TO USE URINAL HE HAS TO GO TO [facility] TO TAKE TIME TO AMBULATE TO BATHROOM WITH OXYGEN TANK. PATIENT VOIDED 300ML CLEAR YELLOW URINE IN URINAL. BACK TO BED WITH OXYMASK FOR RECOVERY.
--- NOTE | 2024-12-13 23:14 | NUR ---
patient assisted to the bathroom. 8L oxymask in place. patient ambulates with sba. tolerated activity moderately well. back to sitting at edge of bed to recover from activity. primary RN in room.
[2024-12-14 00:04] VITALS: BP 125/73
--- NOTE | 2024-12-14 00:14 | NUR ---
PATIENT RESTING IN BED, EYES CLOSED, RESPIRATIONS 20/MIN. SNORING NOTED. NO DISTRESS NOTED AT THIS TIME.
--- NOTE | 2024-12-14 00:53 | NUR ---
PATIENT UP TO EDGE OF BED TO USE URNAL. TOLERATED ACTIVITY WELL. DENIED FURTHER NEEDS.
[2024-12-14 02:27] VITALS: BP 98/74
[2024-12-14 05:23] VITALS: BP 99/78
--- NOTE | 2024-12-14 05:24 | NUR ---
PATIENT HAS SLEPT INTERMITTEN, UP TO VOID SMALL AMOUNTS EVERY 1-2 HOURS. REPORT HEADACHE 4/10 PAIN AT HS, TYLENOL PRN ADMINISTERED. HE HAD TWO JELLO SNACKS AT HS AND APPLE SAUCE WITH HE MEDICATIONS. HE HAS AMBULATED THREE TIMES TO BATHROOM, THEN PREFERRED URINAL AT BEDSIDE, HE CONTINUES TO REQUIRE THE OXYMASK AT 8L IN ADDITION TO 6L HIGH FLOW N.C. WITH ACTIVITY. HE REPORTS FEELING LIKE HE DID NOT SLEEP WELL AND IS STILL TIRED. HE REPORTS HE USUALLY ONLY GETS UP TO VOID ONCE IN THE NIGHT AT HOME. HE REMAINS ALERT AND ORIENTED.
[2024-12-14 05:25] LABS: BASOPHILS 0.2 % (0.2-1.2); EOSINOPHILS 0.1 % (0.8-7.0); LYMPHOCYTES 15.9 % (21.8-53.1); MCH 31.3 PG (25.7-32.2); MCHC 34.0 g/dL (32.3-36.5); MCV 92.1 fL (79.0-92.2); MONOCYTES 6.6 % (5.3-12.2); NEUTROPHILS 76.7 % (34.0-67.9); RBC 4.41 M/uL (4.63-6.08)
[2024-12-14 05:42] LABS: ALT (SGPT) 24.0 U/L (14-59); AST (SGOT) 14.0 U/L (15-37); GLOMERULAR FILTRATION RATE,EST 104.0 mL/min (>60); PROTEIN, TOTAL 7.5 g/dL (6.4-8.2); UREA NITROGEN 8.0 mg/dL (7-18)
[2024-12-14 06:45] VITALS: BP 139/86
--- NOTE | 2024-12-14 07:28 | NUR ---
REPORT RECEIVED FROM JACOB NUÑEZ. PT RESTING IN BED, EYES CLOSED, RESP EVEN AND UNLABORED. HR 60'S, SINUS RHYTHM, SPO2 99%, ON 6L HFNC WITH SPO2 100%.
[2024-12-14 08:00] VITALS: BP 124/75
--- NOTE | 2024-12-14 08:58 | NUR ---
OT IN WITH PT
--- NOTE | 2024-12-14 09:59 | NUR ---
CALLED [facility] AND SPOKE WITH JAJA REGARDING CPT VEST. DR. DAVID IS WANTING TO PUT ORDER ON HOLD FOR PULMONOLOGY TO [place] PRIOR TO DELIVERING TO PATIENT. REQUEST [facility] HOLD ORDER FOR TIME BEING.
[2024-12-14] MEDS ORDERED: HYDROXYZINE PAM25 MG PO (10:34)
--- NOTE | 2024-12-14 11:03 | NUR ---
SPOKE WITH PATIENT AND HIS REGARDING HOME HEALTH REFERRAL AND CPT VEST. INFORMED THEM DR. DAVID WANTS TO WAIT FOR CPT VEST UNTIL PATIENT IS SEEN BY PULMONOLOGY. ALSO INFORMED THEM HOME HEALTH WOULD REACH OUT TO THEM TO SCHEDULE VISITS.
--- NOTE | 2024-12-14 11:15 | NUR ---
VISITED DURING SPIRITUAL CARE ROUNDS. PT IN OVERALL GOOD SPIRITS, LOOKING FORWARD TO RETURN TO HOME, SUPPORTED BY IN ROOM. PROFESSOR OF ARCHAEOLOGY PROVIDED SUPPORTIVE PRESENCE, HOSPITALITY, PRAYER, FACILITATED INTERACTION WITH THERAPY ANIMAL. PT AND EXPRESSED GRATITUDE, HOPE.
[2024-12-14 11:17] VITALS: BP 129/77
--- NOTE | 2024-12-14 11:24 | NUR ---
PT AND HIS WERE GIVEN D/C INSTRUCTIONS. STATE THAT HE HAS AN APPOINTMENT ON TUESDAY WITH DR KEN ALATORRE. IV DC'D AND PT WHEELED OUT VIA WC TO HOME WITH .
== END 2024-12-14 11:37 | disposition home or self-care (01) | DRG 199 ==
LOC: ED 15:35 → CCU 19:47
PROVIDERS: Emergency Medicine; ADMIT Family Medicine; ATTEND Family Medicine
DX: J98.2 Interstitial emphysema (principal); J96.21 Acute and chronic respiratory failure with hypoxia; I25.10 Atherosclerotic heart disease of native coronary artery without angina pectoris; E78.5 Hyperlipidemia, unspecified; Z87.891 Personal history of nicotine dependence; Z95.5 Presence of coronary angioplasty implant and graft; Z98.890 Other specified postprocedural states; Z79.52 Long term (current) use of systemic steroids; Z79.899 Other long term (current) drug therapy; Z79.02 Long term (current) use of antithrombotics/antiplatelets; Z79.82 Long term (current) use of aspirin; Z79.51 Long term (current) use of inhaled steroids; Z82.49 Family history of ischemic heart disease and other diseases of the circulatory system; Z91.048 Other nonmedicinal substance allergy status
CPT/HCPCS: 36415; 70450; 71045; 71250; 71260; 74230; 80053; 83605; 83735; 83880; 84100; 84484; 85025; 87502; 92526; 92611; 93005; 93010; 94640; 94667; 94668; 94761; 94762; 94799; 96374; 97162; 97166; 97530; 97535; 99285-25; A9270; J1650; J2919; J7030; Q0177; Q9967; U0002